=== PATIENT | male | born 1940 ===

== ENCOUNTER 2023-11-01 17:04 | Inpatient (IN) | payer MEDICARE, OTHER ==
[~2023-11-01] VITALS: Ht 167.6 cm; Wt 69.6 kg
[2023-11-01 17:30] LABS: CALCIUM 9.1 mg/dL (8.5-10.1); CARBON DIOXIDE 30 mmol/L (21-32); CHLORIDE 97 mmol/L (98-107); GLUCOSE 117 mg/dL (74-106); POTASSIUM 4.6 mmol/L (3.5-5.1); SODIUM SERUM 135 mmol/L (136-145); UREA NITROGEN, BLOOD 30 mg/dL (7-18)
[2023-11-01 17:33] LABS: BASOPHILS % (AUTO) 0.6 % (0.0-2.0); DIFFERENTIAL COMMENT 0; EOSINOPHILS # (AUTO) 0.1 K/uL (0.0-0.7); EOSINOPHILS % (AUTO) 1.2 % (0.0-7.0); HEMATOCRIT 41.8 % (36.7-47.1); HEMOGLOBIN 14.2 g/dL (12.5-16.3); LYMPHOCYTES % (AUTO) 18.1 % (20.5-51.5); MEAN CORPUSCULAR HEMOGLOBIN 31.6 uug (23.8-33.4); MEAN CORPUSCULAR HGB CONC 34 g/dL (32.5-36.3); MEAN CORPUSCULAR VOLUME 92.8 fL (73.0-96.2); MONOCYTES # (AUTO) 0.6 K/uL (0.1-1.30); MONOCYTES % (AUTO) 11.4 % (0.0-11.0); NEUTROPHILS # (AUTO) 3.7 K/uL (1.8-8.9); NEUTROPHILS % (AUTO) 68.7 % (38.5-71.5); PLATELET COUNT (AUTO) 268 K/uL (152-348); RED CELL DISTRIBUTION WIDTH 14.1 % (12.1-16.2); WHITE BLOOD COUNT (AUTO) 5.4 K/uL (3.6-10.2)
[2023-11-01] MEDS ORDERED: FURO20TA4 GT (17:34)
[2023-11-01] MEDS ORDERED: ACET325C7 GT (17:34)
[2023-11-01] MEDS ORDERED: ACET-73 PO (17:34)
[2023-11-01] MEDS ORDERED: LORA0.5T48 GT (17:34)
[2023-11-01] MEDS ORDERED: HALO0.5T6 GT (17:34)
[2023-11-01] MEDS ORDERED: DONE5TAB34 GT (17:34)
[2023-11-01] MEDS ORDERED: ONDA4TAB5 GT (17:34)
[2023-11-01] MEDS ORDERED: AMLO-212 GT (17:34)
[2023-11-01] MEDS ORDERED: IPRATROPIUM ALBUT GT (17:34)
[2023-11-01] MEDS ORDERED: ASPI81TA31 PO (17:34)
[2023-11-01 17:36] LABS: ALANINE AMINOTRANSFERASE 90 U/L (16-63); ALBUMIN 3.2 g/dL (3.4-5.0); ALKALINE PHOSPHATASE 122 U/L (50-136); ASPARTATE AMINOTRANSFERASE 27 U/L (15-37); BILIRUBIN,DIRECT 0.4 mg/dL (0.0-0.2); BILIRUBIN,TOTAL 0.9 mg/dL (0.2-1.0); ETHANOL < 3 MG/DL (0-10); TOTAL PROTEIN, SERUM 6.8 g/dL (6.4-8.2)
[2023-11-01] MEDS ORDERED: ONDANSETRON HCL 4 MG/5 ML UDC ORAL SOL ONE (18:57)
[2023-11-01] MEDS: ONDANSETRON HCL 4 MG/5 ML UDC ORAL SOL GT ONE (19:03)
[2023-11-01] MEDS: IV NORMAL SALINE 1000 ML BAG IV ONE (19:03)
[2023-11-01] MEDS ORDERED: LORAZEPAM 2 MG/1 ML VIAL ONE (19:50)
[2023-11-01] MEDS: LORAZEPAM 2 MG/1 ML VIAL IV ONE (20:00)
[2023-11-01] MEDS: IV NS 1000 ML 1,000 ML IV ONE (20:00)
[2023-11-01] MEDS ORDERED: MAGNESIUM HYDROXIDE 30 ML LIQUID UDC PO PRN (23:00)
[2023-11-01] MEDS ORDERED: Medication Not On Formulary EA (Acetaminophen (Tylenol) 2 CAP) GT PRN (23:00)
[2023-11-01] MEDS ORDERED: ACETAMINOPHEN ES 500 MG TABLET- SA PATIENTS-PAIN ONLY PO PRN (23:00)
[2023-11-01 23:36] VITALS: BP 104/61; TEMP 98.2; O2SAT 96
[2023-11-01 23:38] VITALS: BP 93/53; O2SAT 97
[2023-11-02] MEDS ORDERED: MAGNESIUM HYDROXIDE 30 ML LIQUID UDC GT PRN
[2023-11-02] MEDS: IV NS 1000 ML 1,000 ML IV PRN (00:16)
[2023-11-02 04:40] VITALS: BP 108/62; TEMP 98.1; O2SAT 96
[2023-11-02 07:27] LABS: BASOPHILS % (AUTO) 0.8 % (0.0-2.0); EOSINOPHILS # (AUTO) 0.1 K/uL (0.0-0.7); HEMATOCRIT 34.9 % (36.7-47.1); HEMOGLOBIN 11.8 g/dL (12.5-16.3); LYMPHOCYTES # (AUTO) 1.1 K/uL (0.8-4.8); LYMPHOCYTES % (AUTO) 23.6 % (20.5-51.5); MEAN CORPUSCULAR HEMOGLOBIN 31.7 uug (23.8-33.4); MEAN CORPUSCULAR HGB CONC 34 g/dL (32.5-36.3); MEAN CORPUSCULAR VOLUME 93.8 fL (73.0-96.2); MONOCYTES # (AUTO) 0.6 K/uL (0.1-1.30); MONOCYTES % (AUTO) 12.9 % (0.0-11.0); NEUTROPHILS # (AUTO) 2.7 K/uL (1.8-8.9); NEUTROPHILS % (AUTO) 59.7 % (38.5-71.5); PLATELET COUNT (AUTO) 201 K/uL (152-348); RED BLOOD CELL COUNT(AUTO) 3.73 MIL/uL (4.06-5.63); RED CELL DISTRIBUTION WIDTH 14.1 % (12.1-16.2); WHITE BLOOD COUNT (AUTO) 4.5 K/uL (3.6-10.2)
[2023-11-02 07:28] LABS: *BILIRUBIN,URIN NEGATIVE (NEGATIVE); *BLOOD, URINE NEGATIVE (NEGATIVE); *CLARITY,URINE CLEAR (CLEAR); *COLOR,URINE YELLOW (YELLOW); *KETONES,URINE NEGATIVE (NEGATIVE); *PROTEIN,URINE NEGATIVE (NEGATIVE); LEUKOCYTE ESTERASE ,URINE 1+ (NEGATIVE); NITRITE, URINE NEGATIVE (NEGATIVE); PH,URINE 7.5 (5.0-8.0); UGLUCOSE NEGATIVE (NEGATIVE)
[2023-11-02 07:31] LABS: CALCIUM 7.5 mg/dL (8.5-10.1); CARBON DIOXIDE 27 mmol/L (21-32); CHLORIDE 103 mmol/L (98-107); CREATININE 0.8 mg/dL (0.6-1.3); GLUCOSE 82 mg/dL (74-106); PHOSPHOROUS 3.5 mg/dL (2.5-4.9); POTASSIUM 3.2 mmol/L (3.5-5.1); SODIUM SERUM 130 mmol/L (136-145); UREA NITROGEN, BLOOD 22 mg/dL (7-18)
[2023-11-02 08:00] VITALS: BP 119/65; TEMP 97.4; O2SAT 96
[2023-11-02 08:06] LABS: DIFFERENTIAL COMMENT 1
[2023-11-02 08:11] LABS: *AMPHETAMINE, URINE NEGATIVE (NEGATIVE); *BARBITURATE, URINE NEGATIVE (NEGATIVE); *BENZODIAZEPINE, URINE NEGATIVE (NEGATIVE); *CANNABINOID, URINE NEGATIVE (NEGATIVE); *COCCAINE, URINE NEGATIVE (NEGATIVE); *OPIATE, URINE NEGATIVE (NEGATIVE); *PHENCYCLIDINE SCREEN,URINE NEGATIVE (NEGATIVE); FENTANYL, URINE NEGATIVE (NEGATIVE)
[2023-11-02 08:34] LABS: BACTERIA,URINE FEW /HPF (NONE SEEN); RBC,URINE NONE SEEN /HPF (0-3); SQUAMOUS EPITHELIAL CELL,UR FEW /HPF (NONE SEEN)
[2023-11-02] MEDS: ASPIRIN 81 MG TAB.CHEW GT SCH (08:36)
[2023-11-02] MEDS: AMLODIPINE 5 MG TABLET GT SCH (08:36)
[2023-11-02] MEDS ORDERED: ASPIRIN 81 MG TAB.CHEW PO SCH (09:00)
[2023-11-02] MEDS: JEVITY 1.2 1000 ML LIQUID GT PRN (09:10)
[2023-11-02] MEDS: DONEPEZIL 5 MG TABLET GT SCH (09:12)
[2023-11-02] MEDS: POTASSIUM CHLORIDE 20 MEQ TAB.PRT.SR PO ONE (10:51)
[2023-11-02 12:00] VITALS: BP 123/58; TEMP 97.6; O2SAT 97
[2023-11-02 20:00] VITALS: BP 144/77; TEMP 98.2; O2SAT 97
[2023-11-03] MEDS: ACETAMINOPHEN 325 MG TABLET PO PRN (00:59)
[2023-11-03 06:00] VITALS: BP 134/57; TEMP 98.4; O2SAT 98
[2023-11-03 07:22] LABS: BASOPHILS % (AUTO) 0.5 % (0.0-2.0); EOSINOPHILS # (AUTO) 0.1 K/uL (0.0-0.7); EOSINOPHILS % (AUTO) 1.8 % (0.0-7.0); HEMATOCRIT 37.4 % (36.7-47.1); HEMOGLOBIN 12.8 g/dL (12.5-16.3); LYMPHOCYTES # (AUTO) 0.9 K/uL (0.8-4.8); LYMPHOCYTES % (AUTO) 19.2 % (20.5-51.5); MEAN CORPUSCULAR HEMOGLOBIN 32.1 uug (23.8-33.4); MEAN CORPUSCULAR HGB CONC 34 g/dL (32.5-36.3); MEAN CORPUSCULAR VOLUME 93.5 fL (73.0-96.2); MONOCYTES # (AUTO) 0.5 K/uL (0.1-1.30); MONOCYTES % (AUTO) 11.2 % (0.0-11.0); NEUTROPHILS % (AUTO) 67.3 % (38.5-71.5); PLATELET COUNT (AUTO) 223 K/uL (152-348); RED CELL DISTRIBUTION WIDTH 13.8 % (12.1-16.2); WHITE BLOOD COUNT (AUTO) 4.5 K/uL (3.6-10.2)
[2023-11-03 07:29] LABS: DIFFERENTIAL COMMENT 1
[2023-11-03 07:34] LABS: CALCIUM 8.4 mg/dL (8.5-10.1); CARBON DIOXIDE 26 mmol/L (21-32); CHLORIDE 104 mmol/L (98-107); CREATININE 0.9 mg/dL (0.6-1.3); GLUCOSE 128 mg/dL (74-106); MAGNESIUM 2.1 mg/dL (1.8-2.4); PHOSPHOROUS 3.3 mg/dL (2.5-4.9); POTASSIUM 3.9 mmol/L (3.5-5.1); SODIUM SERUM 135 mmol/L (136-145); UREA NITROGEN, BLOOD 23 mg/dL (7-18)
[2023-11-03 08:00] VITALS: BP 134/58; TEMP 97.4; O2SAT 96
[2023-11-03 12:00] VITALS: BP 148/74; TEMP 96.7; O2SAT 98
[2023-11-03 16:00] VITALS: BP 118/55; TEMP 97.6; O2SAT 97
[2023-11-03 20:10] VITALS: BP 138/75; TEMP 97.6; O2SAT 98
[2023-11-03] MEDS: DONEPEZIL 10 MG TABLET GT SCH (21:01)
[2023-11-03 23:55] LABS: *SODIUM RNDM,URINE 105 mmol/L (40-220)
[2023-11-04] MEDS: ONDANSETRON 4 MG/2 ML VIAL IV PRN (03:42)
[2023-11-04 05:18] VITALS: BP 140/80; TEMP 97.4; O2SAT 97
[2023-11-04 07:17] LABS: CALCIUM 8.5 mg/dL (8.5-10.1); CARBON DIOXIDE 27 mmol/L (21-32); CHLORIDE 102 mmol/L (98-107); CREATININE 0.9 mg/dL (0.6-1.3); GLUCOSE 106 mg/dL (74-106); MAGNESIUM 2.1 mg/dL (1.8-2.4); PHOSPHOROUS 3.6 mg/dL (2.5-4.9); POTASSIUM 3.9 mmol/L (3.5-5.1); SODIUM SERUM 136 mmol/L (136-145); UREA NITROGEN, BLOOD 19 mg/dL (7-18)
[2023-11-04 07:26] LABS: THYROID STIMULATING HORMONE 3.372 mIU/mL (0.358-3.740)
[2023-11-04 07:52] LABS: URIC ACID 3.5 mg/dL (3.5-7.2)
[2023-11-04] MEDS: REMEDY ESSENTIAL ZINC PASTE 113 GM TP PRN (08:46)
[2023-11-04 11:41] VITALS: BP 107/56; TEMP 97.6; O2SAT 95
[2023-11-04 16:00] VITALS: BP 136/80; TEMP 97.6; O2SAT 97
[2023-11-04 20:17] VITALS: BP 115/66; TEMP 98; O2SAT 97
[2023-11-05 05:30] VITALS: BP 124/74; TEMP 96.7; O2SAT 93
[2023-11-05 12:04] VITALS: BP 98/60; TEMP 96.7; O2SAT 95
== END 2023-11-05 14:40 | DRG 640 ==
LOC: ER 17:05 → MEDSURG3 22:32
PROVIDERS: ADMIT Nurse Practitioner Acute Care
DX: E86.0 Dehydration (principal); G92.8 Other toxic encephalopathy; I50.32 Chronic diastolic (congestive) heart failure; E22.2 Syndrome of inappropriate secretion of antidiuretic hormone; I11.0 Hypertensive heart disease with heart failure; E88.09 Other disorders of plasma-protein metabolism, not elsewhere classified; E87.6 Hypokalemia; E86.9 Volume depletion, unspecified; D64.9 Anemia, unspecified; F03.90 Unspecified dementia, unspecified severity, without behavioral disturbance, psychotic disturbance, mood disturbance, and anxiety; R13.10 Dysphagia, unspecified; Z93.1 Gastrostomy status; M89.8X9 Other specified disorders of bone, unspecified site; R79.89 Other specified abnormal findings of blood chemistry; M62.81 Muscle weakness (generalized)
CPT/HCPCS: 36415; 70450; 71045; 83735; 84100; 84300; 84443; 84484; 84550; 85025; 93005; G0378; G0480; J2060; J2405; J7040; Q0162